=== PATIENT | male | born 1990 | race Two or more races ===

== ENCOUNTER 2019-05-14 22:09 | Emergency (ER) | payer MEDICAID, OTHER ==
--- NOTE | 2019-05-14 22:32 | NUR ---
CALLED FOR TRIAGE, NO ANSWER.
--- NOTE | 2019-05-14 22:39 | NUR ---
CALLED FOR TRIAGE, NO ANSWER.
--- NOTE | 2019-05-14 22:46 | NUR ---
CALLED FOR TRIAGE, NO ANSWER.
== END 2019-05-14 23:01 | disposition left against medical advice (07) ==
LOC: ER 22:12
DX: Z53.21 Procedure and treatment not carried out due to patient leaving prior to being seen by health care provider (principal)